=== PATIENT | female | born 1945 | race Caucasian/White ===

== ENCOUNTER 2022-09-28 07:17 | Day surgery (SDC) | payer BC, MEDICAID ==
[~2022-09-28] VITALS: Ht 160 cm; Wt 50.0 kg
[2022-09-28 07:30] VITALS: BP 194/78
[2022-09-28] MEDS ORDERED: ACET-2778 PO (07:51)
[2022-09-28] MEDS ORDERED: BACL10TA2 PO (07:51)
[2022-09-28] MEDS ORDERED: LISI20TA28 PO (07:51)
[2022-09-28] MEDS ORDERED: PANT40TA54 PO (07:51)
[2022-09-28] MEDS ORDERED: TIOT4MIS2 INH (07:51)
[2022-09-28] MEDS ORDERED: MELA5TAB12 PO (07:51)
[2022-09-28] MEDS ORDERED: CHOL100017 PO (07:51)
[2022-09-28] MEDS ORDERED: LORA10TA7 PO (07:51)
[2022-09-28] MEDS ORDERED: ALEN10TA27 PO (07:51)
[2022-09-28] MEDS ORDERED: LEVO88TA7 PO (07:51)
[2022-09-28] MEDS ORDERED: ATOR40TA72 PO (07:51)
[2022-09-28] MEDS ORDERED: DICLOFENAC TOP (07:51)
[2022-09-28] MEDS ORDERED: ALBU8HFA PO (07:53)
[2022-09-28] MEDS ORDERED: LIDOcaine Viscous 15ml cup ONE (07:53)
[2022-09-28] MEDS ORDERED: MIDAZolam 1 MG/ML 5ML VIAL ONE (07:53)
[2022-09-28] MEDS ORDERED: fentaNYL/PF 50MCG/1 ML 2ML syringe ONE (07:53)
[2022-09-28 09:10] VITALS: BP 157/82
[2022-09-28 09:20] VITALS: BP 160/67
[2022-09-28 09:30] VITALS: BP 149/64
[2022-09-28 09:40] VITALS: BP 134/86
== END 2022-09-28 09:45 | disposition home or self-care (01) ==
LOC: GI LAB 07:17
PROVIDERS: ATTEND Internal Medicine Gastroenterology
DX: R10.13 Epigastric pain (principal); K22.89 Other specified disease of esophagus; K29.70 Gastritis, unspecified, without bleeding; I10 Essential (primary) hypertension; J44.9 Chronic obstructive pulmonary disease, unspecified; F17.210 Nicotine dependence, cigarettes, uncomplicated; Z99.81 Dependence on supplemental oxygen; Z87.11 Personal history of peptic ulcer disease
CPT/HCPCS: 43239; G0500; J2250; J3010; J7030; Z7512; 88305; 99152; A4620